=== PATIENT | male | born 2000 | race Caucasian/White ===

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

== ENCOUNTER 2022-03-01 17:10 | Emergency (ER) | payer OTHER ==
--- NOTE | 2022-03-01 17:40 | ED ---
General Adult HPI - General Source: patient Mode of arrival: ambulatory Limitations: no limitations <Malina Khan - Last Filed: 03/01/22 17:43> - General Source: RN notes reviewed <Kristal Ayala - Last Filed: 03/01/22 23:48> - General Chief complaint: Skin/Abscess/Foreign Body Stated complaint: poss rt foot infection - History of Present Illness Initial comments: Patient is a 22 year old male who presents due to ingrown toenails. Patient noticed ingrown toenails of the right first and third toe 1 month ago with worsening of pain in the past week. Does admit to some redness and swelling of his right great toe. Not taking any medication for pain. Denies fever, chills, nausea, vomiting. Patient follows with a stemhole borer however missed his last appointment in February and has not scheduled a new one. Does admit to history of MRSA in his left great toe. (Malina Khan) - Related Data Previous Rx's Medication Instructions Recorded Cyclobenzaprine [Flexeril] 10 mg PO TID PRN #15 tab 05/12/21 Clindamycin [Cleocin] 450 mg PO Q8HR #90 capsule 03/01/22 Allergies Allergy/AdvReac Type Severity Reaction Status Date / Time Iodine and Iodide Containing Allergy Anaphylaxis Verified 05/12/21 19:03 Produc red dye Allergy Anaphylaxis Verified 05/12/21 19:03 Review of Systems ROS Other: All systems not noted in ROS Statement are negative. <Malina Khan - Last Filed: 03/01/22 17:43> ROS Other: All systems not noted in ROS Statement are negative. <Kristal Ayala - Last Filed: 03/01/22 23:48> ROS Statement: Those systems with pertinent positive or pertinent negative responses have been documented in the HPI. Past Medical History Additional Past Medical History / Comment(s): ALLERGIES History of Any Multi-Drug Resistant Organisms: None Reported, MRSA Date of last positivie culture/infection: 2018 MDRO Source:: picc line Past Surgical History: Adenoidectomy, Tonsillectomy Additional Past Surgical History / Comment(s): Left toe toe nail removal. Past Psychological History: Anxiety Smoking Status: Never smoker Past Alcohol Use History: None Reported Past Drug Use History: Marijuana <Malina Khan - Last Filed: 03/01/22 17:43> General Exam Limitations: no limitations <Malina Khan - Last Filed: 03/01/22 17:43> General appearance: alert, in no apparent distress Head exam: Present: atraumatic, normocephalic, normal inspection Eye exam: Present: normal appearance, PERRL, EOMI. Absent: scleral icterus, conjunctival injection, periorbital swelling ENT exam: Present: normal exam, mucous membranes moist Neck exam: Present: normal inspection. Absent: tenderness, meningismus, lymphadenopathy Respiratory exam: Present: normal lung sounds bilaterally. Absent: respiratory distress, wheezes, rales, rhonchi, stridor Cardiovascular Exam: Present: regular rate, normal rhythm, normal heart sounds. Absent: systolic murmur, diastolic murmur, rubs, gallop, clicks GI/Abdominal exam: Present: soft, normal bowel sounds. Absent: distended, tenderness, guarding, rebound, rigid Extremities exam: Present: normal inspection, full ROM, normal capillary refill. Absent: tenderness, pedal edema, joint swelling, calf tenderness Right Foot/Toe exam: Present: full ROM, swelling (R great two with significant redne ss, erythema, and edema to the medial and lateral aspects of toe with purulent discharge consistent with ingrown toenail). Absent: normal inspection Back exam: Present: normal inspection Neurological exam: Present: alert, oriented X3, CN II-XII intact Psychiatric exam: Present: normal affect, normal mood Skin exam: Present: warm, dry, intact, normal color. Absent: rash <Kristal Ayala - Last Filed: 03/01/22 23:48> Course Vital Signs 03/01/22 03/01/22 17:15 20:35 Temperature 98 F 98.4 F Pulse Rate 75 97 Respiratory 20 18 Rate Blood Pressure 136/77 126/59 O2 Sat by Pulse 97 96 Oximetry Medical Decision Making <Kristal Ayala - Last Filed: 03/01/22 23:48> - Medical Decision Making Was pt. sent in by a medical professional or institution? @ -Self Did you speak to anyone other than the patient for history? @ -patient Did you review nursing and triage notes? @ -triage notes reviewed Were old charts reviewed? @ -NA Differential Diagnosis? @ -ingrown toe nail, cellulitis EKG interpreted by me (3pts min.)? @ -[none] X-rays interpreted by me (1pt min.)? @ -negative for evidence of osteomyelitis CT interpreted by me (1pt min.)? @ -[none] U/S interpreted by me (1pt. min.)? @ -[none] What testing was considered but not performed? (CT, X-rays, U/S, labs)? Why? @ [CT, X-rays, U/S, labs? Why?] What meds were considered but not given? Why? @ -[none] Did you discuss the management of the patient with other professionals? @ -I discussed the case with Dr. Landa who agrees with plan for discharge Did you reconcile home meds? @ -NA Was smoking cessation discussed for >3mins.? @ -NA Was critical care preformed (if so, how long)? @ -NA Were there social determinants of health that impacted care today? How? (Homelessness, low income, unemployed, alcoholism, drug addiction, transportation, low edu. Level, literacy, decrease access to med. care, custodial, rehab)? @ -[Homelessness, low income, unemployed, alcoholism, drug addiction, transportation, low edu. Level, literacy, decrease access to med. care, custodial, rehab?] Was there de-escalation of care discussed even if they declined? (Discuss DNR or withdrawal of care, Hospice)? @ -[Discuss DNR or withdrawal of care, Hospice?] What co-morbidities impacted this encounter? (DM, HTN, Smoking, COPD, CAD, Cancer, CVA, Hep., AIDS, mental health diagnosis, sleep apnea, morbid obesity)? @ NA d Was patient admitted / discharged? @ discharged in stable condition with recommended close follow up with Podiatry in 1-2 days. Pt was given a prescription for clindamycin. Discharged in stable condition ] Undiagnosed new problem with uncertain prognosis? @ -ingrown toenail Drug Therapy requiring intensive monitoring for toxicity (Heparin, Nitro, Insulin, Cardizem)? @ - Were any procedures done? @ -No Diagnosis/symptom? @ -ingrown toenail of R great toe Acute, or Chronic, or Acute on Chronic? @ -acute Uncomplicated (without systemic symptoms) or Complicated (systemic symptoms)? @ -uncomplicated Side effects of treatment? @ -Abdominal pain, nausea, vomiting, please take clindamycin with food Exacerbation, Progression, or Severe Exacerbation] @ -No Poses a threat to life or bodily function? @ -low likelihood (Kristal Ayala) Disposition <Malina Khan - Last Filed: 03/01/22 17:43> Is patient prescribed a controlled substance at d/c from ED?: No <Kristal Ayala - Last Filed: 03/01/22 23:48> Clinical Impression: Ingrown left big toenail Disposition: HOME SELF-CARE Condition: Stable Prescriptions: Clindamycin [Cleocin] 450 mg PO Q8HR #90 capsule Referrals: None,Stated [Primary Care Provider] - 1-2 days
--- NOTE | 2022-03-01 18:53 | XR ---
EXAMINATION TYPE: XR foot complete RT DATE OF EXAM: 03/01/2022 COMPARISON: NONE HISTORY: Pain TECHNIQUE: 3 views FINDINGS: I see no fracture nor dislocation. Joint spaces are fairly normal. The big toe is intact. N o definite focal bone destruction. IMPRESSION: Negative right foot exam. No sign of osteomyelitis. No fracture.
[2022-03-01] MEDS ORDERED: CLINDAMYCIN 150 MG CAP PO STA (20:03)
[2022-03-01 20:36] VITALS: BP 126/59; PULSE 97; RESP 18; TEMP 98.4
== END 2022-03-01 20:45 | disposition home or self-care (01) ==
LOC: EC 17:10
DX: L60.0 Ingrowing nail (principal); F41.9 Anxiety disorder, unspecified; F12.90 Cannabis use, unspecified, uncomplicated; Z91.041 Radiographic dye allergy status
CPT/HCPCS: 99283